=== PATIENT | female | born 1965 | race Caucasian/White ===

== ENCOUNTER 2017-06-20 12:41 | Inpatient (IN) ==
--- NOTE | 2017-06-19 22:08 | Discharge Summary ---
<JuanbyronSofie L - Last Filed: 06/20/17 11:45> Date of Encounter: 06/20/17 - Discharge Diagnosis (1) Arthritis of knee, left Priority: Primary Status: Acute (2) Status post total knee replacement, left Priority: Primary Status: Acute (3) Tobacco use Priority: Secondary Status: Chronic (4) DMII (diabetes mellitus, type 2) Priority: Secondary Status: Chronic Qualifiers: Diabetes mellitus complication status: without complication Diabetes mellitus senior care insulin use: unspecified senior care insulin use status Qualified Code(s): E11.9 - Type 2 diabetes mellitus without complications (5) HTN (hypertension) Priority: Secondary Status: Chronic Qualifiers: Hypertension type: essential hypertension Qualified Code(s): I10 - Essential (primary) hypertension (6) COPD (chronic obstructive pulmonary disease) Priority: Secondary Status: Chronic Qualifiers: COPD type: unspecified COPD Qualified Code(s): J44.9 - Chronic obstructive pulmonary disease, unspecified (7) Oxygen dependent Priority: Secondary Status: Chronic Comments: Patient on 2-3 Liters LPM/NC at night (8) CAD (coronary artery disease) Priority: Secondary Status: Chronic Qualifiers: Coronary Disease-Associated Artery/Lesion type: unspecified vessel or lesion type [place] vs. transplanted heart: [place] heart Associated angina: without angina Qualified Code(s): I25.10 - Atherosclerotic heart disease of [place] coronary artery without angina pectoris (9) Obesity Priority: Secondary Status: Chronic Qualifiers: Obesity type: due to excess calories Obesity classification: unspecified obesity classification Serious obesity comorbidity presence: with serious comorbidity Qualified Code(s): E66.09 - Other obesity due to excess calories; Z68.42 - Body mass index (BMI) 45.0-49.9, adult; Z68.42 - Body mass index (BMI) 45.0-49.9, adult; Z68.42 - Body mass index (BMI) 45.0-49.9, adult; Z68.42 - Body mass index (BMI) 45.0-49.9, adult (10) Decreased GFR Priority: Secondary Status: Chronic - Discharge Medications Home Medications: Bupropion HCl [Wellbutrin Xl] 300 mg PO DAILY 05/05/15 [History] Metoprolol [Lopressor] 25 mg PO BID 05/05/15 [History] Methocarbamol [Robaxin-750] 750 mg PO DAILY PRN 08/01/16 [History] Aspirin Enteric Coated [Aspirin EC] 325 mg PO DAILY #21 tablet. 06/19/17 [Rx] LORazepam 5 mg PO DAILY #5 06/19/17 [Rx] OxyCODONE Immed Rel [Roxicodone 5 MG] 5 mg PO Q6HR PRN #28 tablet 06/19/17 [Rx] Albuterol Sulfate [Ventolin Hfa] 2 puff IH Q4H PRN 06/20/17 [History] Aspirin Enteric Coated [Aspirin EC] 81 mg PO DAILY 06/20/17 [History] Atorvastatin Calcium [Lipitor] 20 mg PO DAILY 06/20/17 [History] Benztropine [Cogentin] 0.5 mg PO BID 06/20/17 [History] Celecoxib [Celebrex] 100 mg PO BID 06/20/17 [History] Ergocalciferol (VITAMIN D2) [Vitamin D2] 50,000 unit PO QWEEK 06/20/17 [History] Fluticasone/Vilanterol [Breo Ellipta 100-25 Mcg INH] 1 puff IH DAILY 06/20/17 [ History] Furosemide [Lasix] 40 mg PO DAILY 06/20/17 [History] Indomethacin 50 mg PO TID 06/20/17 [History] Ipratropium/Albuterol Neb [Duoneb] 3 ml IH Q6HR 06/20/17 [History] Mirtazapine [Remeron] 15 mg PO HS 06/20/17 [History] Montelukast [Singulair] 10 mg PO DAILY 06/20/17 [History] Nac 600 600 mg PO BID 06/20/17 [History] Omeprazole [PriLOSEC] 40 mg PO DAILY 06/20/17 [History] Ranitidine HCl [Zantac] 300 mg PO DAILY 06/20/17 [History] Umeclidinium [place] [Incruse Ellipta] 1 puff IH DAILY 06/20/17 [History] clonazePAM [Klonopin] 0.5 mg PO TID 06/20/17 [History] lamoTRIgine [Lamictal] 150 mg PO BID 06/20/17 [History] metFORMIN [Glucophage] 500 mg PO BIDWM 06/20/17 [History] risperiDONE [Risperdal] 2 mg PO BID 06/20/17 [History] Allergies/Adverse Reactions: 3 Allergy/AdvReac Type Severity Reaction Status Date / Time ciprofloxacin [From Cipro] Allergy Hives Verified 06/20/17 13:17 Cyclobenzaprine Allergy Agitated Verified 06/20/17 13:17 [From Flexeril] levofloxacin [From Levaquin] Allergy Hives Verified 06/20/17 13:17 moxifloxacin [From Avelox] Allergy Hives Verified 06/20/17 13:17 ziprasidone [From Geodon] Allergy Rash Verified 06/20/17 13:17 lurasidone [From Latuda] AdvReac mood Verified 06/20/17 13:17 changes Primary care physician: Shalini Echevarria - Patient Status Disposition: Home Health Service Condition: Good - Discharge Instructions Follow Up With: Shalini Echevarria MD [Primary Care Provider] - - Hospital Course Hospital course: Ms. Latham is a 51 year old female - Time Spent with Patient Total time spent providing and/or coordinating discharge services: <Geraldo Anton - Last Filed: 06/21/17 06:58> Date of Encounter: 06/21/17 Time of Encounter: 06:57 - Discharge Diagnosis (1) Arthritis of knee, left Priority: Primary Status: Chronic (2) Status post total knee replacement, left Priority: Primary Status: Chronic (3) Tobacco use Priority: Secondary Status: Chronic (4) DMII (diabetes mellitus, type 2) Priority: Secondary Status: Chronic Qualifiers: Diabetes mellitus complication status: without complication Diabetes mellitus intermodal dispatcher insulin use: unspecified senior care insulin use status Qualified Code(s): E11.9 - Type 2 diabetes mellitus without complications (5) HTN (hypertension) Priority: Secondary Status: Chronic Qualifiers: Hypertension type: essential hypertension Qualified Code(s): I10 - Essential (primary) hypertension (6) COPD (chronic obstructive pulmonary disease) Priority: Secondary Status: Chronic Qualifiers: COPD type: unspecified COPD Qualified Code(s): J44.9 - Chronic obstructive pulmonary disease, unspecified (7) Oxygen dependent Priority: Secondary Status: Chronic (8) CAD (coronary artery disease) Priority: Secondary Status: Chronic Qualifiers: Coronary Disease-Associated Artery/Lesion type: unspecified vessel or lesion type [place] vs. transplanted heart: [place] heart Associated angina: without angina Qualified Code(s): I25.10 - Atherosclerotic heart disease of [place] coronary artery without angina pectoris (9) Obesity Priority: Secondary Status: Chronic Qualifiers: Obesity type: due to excess calories Obesity classification: adult class 3 (BMI >= 40) Serious obesity comorbidity presence: with serious comorbidity Body mass index: BMI 45.0-49.9 Qualified Code(s): E66.01 - Morbid (severe) obesity due to excess calories; Z68.42 - Body mass index (BMI) 45.0-49.9, adult ; Z68.42 - Body mass index (BMI) 45.0-49.9, adult; Z68.42 - Body mass index (BMI ) 45.0-49.9, adult; Z68.42 - Body mass index (BMI) 45.0-49.9, adult (10) Decreased GFR Priority: Secondary Status: Chronic Labs on day of discharge: Labs from last 24 hours 06/20/17 13:03 POC Glucose 106 H Primary care physician: Shalini Echevarria - Patient Status Functional capacity at discharge: uses cane/walker Overall status at discharge: patient is progressing back to baseline - Hospital Course Hospital course: Ms. Latham is a 51 year old female Status post left total knee replacement The patient had an uneventful postoperative course. They received antibiotics and physical therapy and were discharged in stable condition. There will follow -up in the office in 2 weeks. - Time Spent with Patient Total time spent providing and/or coordinating discharge services:
[2017-06-20] MEDS ORDERED: CeFAZolin Syr 3,000MG/30 ML 3,000 MG/30 ML SYRINGE IVPB ONE (13:01)
[2017-06-20] MEDS ORDERED: Albuterol 2.5 MG/3 ML NEBULIZER IH ONE (13:03)
--- NOTE | 2017-06-20 13:12 | History & Physical Report ---
Date of Encounter: 06/20/17 Time of Encounter: 13:12 24 Hour HP Update - Instructions Instructions: If the History and Physical is less than 30 days old and was completed prior to A.M. admission and or procedure and has NOT been updated on calendar day of procedure please complete this update prior to performing procedure. - Update Patient reports changes in Medical Condition: No Changes in examination, assessment, or condition: No Changes in Medication: No Preop tests/diagnostics Reviewed: Yes Surgery Remains Indicated: Yes Consent for Planned Operative Procedure(s) Verified: Yes - Pre-Operative Checklist Preoperative Checklist Indicated: No Prophylactic Antibiotic Ordered: Yes Is VTE Prophylaxis Indicated?: Yes
[2017-06-20] MEDS: Ringers Solution, Lactated 1,000 ML IVC SCH ×2 (13:22→18:15)
--- NOTE | 2017-06-20 13:51 | Anesthesia Evaluation PreOp ---
Date of Encounter: 06/20/17 Time of Encounter: 13:50 - Past History Planned Operation: Left TKA Cardiac History: HTN Pulmonary History: Smoker, COPD Other Medical History: Diabetes Type II, GERD Anesthesia History: Past Anesthesia ([facility]) : No Alcohol Use: none Drug use: none Medications and Allergies Bupropion HCl [Wellbutrin Xl] 300 mg PO DAILY 05/05/15 [History] Metoprolol [Lopressor] 25 mg PO BID 05/05/15 [History] Methocarbamol [Robaxin-750] 750 mg PO DAILY PRN 08/01/16 [History] Aspirin Enteric Coated [Aspirin EC] 325 mg PO DAILY #21 tablet.dr 06/19/17 [Rx] LORazepam 5 mg PO DAILY #5 06/19/17 [Rx] OxyCODONE Immed Rel [Roxicodone 5 MG] 5 mg PO Q6HR PRN #28 tablet 06/19/17 [Rx] Albuterol Sulfate [Ventolin Hfa] 2 puff IH Q4H PRN 06/20/17 [History] Aspirin Enteric Coated [Aspirin EC] 81 mg PO DAILY 06/20/17 [History] Atorvastatin Calcium [Lipitor] 20 mg PO DAILY 06/20/17 [History] Benztropine [Cogentin] 0.5 mg PO BID 06/20/17 [History] Celecoxib [Celebrex] 100 mg PO BID 06/20/17 [History] Ergocalciferol (VITAMIN D2) [Vitamin D2] 50,000 unit PO QWEEK 06/20/17 [History] Fluticasone/Vilanterol [Breo Ellipta 100-25 Mcg INH] 1 puff IH DAILY 06/20/17 [ History] Furosemide [Lasix] 40 mg PO DAILY 06/20/17 [History] Indomethacin 50 mg PO TID 06/20/17 [History] Ipratropium/Albuterol Neb [Duoneb] 3 ml IH Q6HR 06/20/17 [History] Mirtazapine [Remeron] 15 mg PO HS 06/20/17 [History] Montelukast [Singulair] 10 mg PO DAILY 06/20/17 [History] Nac 600 600 mg PO BID 06/20/17 [History] Omeprazole [PriLOSEC] 40 mg PO DAILY 06/20/17 [History] Ranitidine HCl [Zantac] 300 mg PO DAILY 06/20/17 [History] Umeclidinium [place] [Incruse Ellipta] 1 puff IH DAILY 06/20/17 [History] clonazePAM [Klonopin] 0.5 mg PO TID 06/20/17 [History] lamoTRIgine [Lamictal] 150 mg PO BID 06/20/17 [History] metFORMIN [Glucophage] 500 mg PO BIDWM 06/20/17 [History] risperiDONE [Risperdal] 2 mg PO BID 06/20/17 [History] 3 Allergy/AdvReac Type Severity Reaction Status Date / Time ciprofloxacin [From Cipro] Allergy Hives Verified 06/20/17 13:17 Cyclobenzaprine Allergy Agitated Verified 06/20/17 13:17 [From Flexeril] levofloxacin [From Levaquin] Allergy Hives Verified 06/20/17 13:17 moxifloxacin [From Avelox] Allergy Hives Verified 06/20/17 13:17 ziprasidone [From Geodon] Allergy Rash Verified 06/20/17 13:17 lurasidone [From Latuda] AdvReac mood Verified 06/20/17 13:17 changes - Meds/Allergy Pre-op Review Medications Reviewed: Yes Allergies Reviewed: Yes Beta Blockers on Current Med List: Yes If Beta Blockers taken, Date/Time (Last Dose taken): 06/20/2017 @05:45 Anesthesia Results - Labs Laboratory Tests 05/13/17 06/16/17 06/16/17 12:45 15:45 15:45 WBC 8.2 Hgb 12.7 Hct 39.5 Plt Count 262 INR 1.0 Sodium Potassium Chloride Carbon Dioxide BUN Creatinine Hemoglobin A1c 5.5 06/16/17 15:45 WBC Hgb Hct Plt Count INR Sodium 139 Potassium 4.5 Chloride 108 Carbon Dioxide 23 BUN 13 Creatinine 1.10 Hemoglobin A1c Echocardiogram Name: Soraya Latham Date of Study: 05/31/2016 Impressions: LVEF 60%. Normal left ventricular size and systolic function. There is evidence of mild diastolic dysfunction of the left ventricle. Normal RV function. No significant valvular dysfunction. Estimated RVSP was 19 mmHg. No pulmonary hypertension. Stress 01/18/17 Stress: EF-71% No Ischemia 12/02/16 PROCEDURES PERFORMED: SP.PFT before and after bronchodilator SP.PFT body box lung volume SP.PFT DLCO INTERPRETATION: Spirometry shows moderate airway restrictive disease. Following Bronchodilator, there is 36 % increase in small airways/mid-flows. Increased Lung Volumes reveal hyperinflation and air trapping. Diffusion Capacity is moderate to severely reduced. Flow Volume Loop: Obstructive - Imaging EKG: image reviewed (SR) Anesthesia Exam O2 Sat Height 1.66 m Height 1.66 m Weight 124.738 kg Weight 124.738 kg O2 Sat by Pulse Oximetry 96 Vital Signs Temp Pulse Resp BP Pulse Ox 98.1 F 75 18 145/88 96 06/20/17 13:05 06/20/17 13:05 06/20/17 13:05 06/20/17 13:05 06/20/17 13:05
[2017-06-20] MEDS ORDERED: *HR* Succinylcholine 200 MG/10 ML VIAL IVP ONE (14:38)
[2017-06-20] MEDS ORDERED: Lidocaine -MPF 2% 2 ML VIAL ONE (14:38)
[2017-06-20] MEDS ORDERED: *HR* Propofol 200 MG/20 ML VIAL IVP ONE (14:38)
[2017-06-20] MEDS ORDERED: *HR* FentaNYL (PF) 100 MCG/2 ML VIAL ONE (14:38)
[2017-06-20] MEDS ORDERED: *HR* Midazolam HCl 2 MG/2 ML VIAL ONE (14:38)
[2017-06-20] MEDS ORDERED: Ondansetron 4 MG/2 ML VIAL ONE (14:38)
[2017-06-20] MEDS ORDERED: *HR* Promethazine 25 MG/ML VIAL IVP PRN (14:57)
[2017-06-20] MEDS ORDERED: *HR* Meperidine 25 MG/ML SYRINGE IVP PRN (14:57)
[2017-06-20] MEDS ORDERED: *HR* HYDROmorphone (PF) 1 MG/ML SYRINGE IVP PRN ×2 (14:57→20:07)
[2017-06-20] MEDS ORDERED: *HR* Labetalol 20 MG/4 ML SYRINGE IVP PRN (14:57)
[2017-06-20] MEDS ORDERED: Ethanol\\Acetic Acid\\Na Ace\\Ben 1,000 ML IRRIG.SOLN IR ONE (15:13)
[2017-06-20] MEDS ORDERED: Acetaminophen IV 1,000 MG/100 ML INFUS..BTL ONE (15:13)
[2017-06-20] MEDS ORDERED: Bupivacaine/Clonidine Syringe 1 EACH SYRINGE ONE (15:38)
[2017-06-20] MEDS ORDERED: ROPIVACAINE HCL/PF 0.5% 30 ML VIAL ONE (15:43)
--- NOTE | 2017-06-20 15:57 | Physician Discharge Referral ---
<Sofie Bach Rebeca - Last Filed: 06/20/17 15:56> Home Health/Hosp Referral Info Transfer to: Home Health Attending Provider: Provider in Charge Post Discharge: PCP - Diagnosis (1) Arthritis of knee, left Priority: Primary Status: Chronic (2) Status post total knee replacement, left Priority: Primary Status: Chronic (3) Tobacco use Priority: Secondary Status: Chronic (4) DMII (diabetes mellitus, type 2) Priority: Secondary Status: Chronic (5) HTN (hypertension) Priority: Secondary Status: Chronic (6) COPD (chronic obstructive pulmonary disease) Priority: Secondary Status: Chronic (7) Oxygen dependent Priority: Secondary Status: Chronic (8) CAD (coronary artery disease) Priority: Secondary Status: Chronic (9) Obesity Priority: Secondary Status: Chronic (10) Decreased GFR Priority: Secondary Status: Chronic - Respiratory Orders None Smoking Cessation: Smoking cessation has been advised. For more information, call the [employer] Tobacco Quit Line at 0-054-FSUQ-NOW. - Diet/Nutrition Diet/Nutrition Orders: Regular - Activity Activity Orders: Up ad samantha, Ambulate, Chair - Services Needed Following services are medically necessary services: Nursing, Home Health Aide, Physical Therapy, Occupational Therapy Home Care Orders: Opsite dressing, leave intact until first post-operative visit. If dressing becomes >50% saturated, contact office, remove dressing and place appropriate dressing in its place. Do not allow for dressing to get wet. /Zipline dressing in place, plan to remove at POD#14-16. PT: Total Joint Precautions x 6 weeks Apply ICE/cold therapy wrap 3-6x/day for 20 minutes at a time. Encourage ambulation throughout the day and incentive spirometer 10x/hour. Elevate affected extremity above heart as tolerated. Brace: Knee immobilizer at night until first post-operative appointment. - Transfer Medications Home Medications: Bupropion HCl [Wellbutrin Xl] 300 mg PO DAILY 05/05/15 [History] Metoprolol [Lopressor] 25 mg PO BID 05/05/15 [History] Methocarbamol [Robaxin-750] 750 mg PO DAILY PRN 08/01/16 [History] Aspirin Enteric Coated [Aspirin EC] 325 mg PO DAILY #21 tablet. 06/19/17 [Rx] LORazepam 5 mg PO DAILY #5 06/19/17 [Rx] OxyCODONE Immed Rel [Roxicodone 5 MG] 5 mg PO Q6HR PRN #28 tablet 06/19/17 [Rx] Albuterol Sulfate [Ventolin Hfa] 2 puff IH Q4H PRN 06/20/17 [History] Aspirin Enteric Coated [Aspirin EC] 81 mg PO DAILY 06/20/17 [History] Atorvastatin Calcium [Lipitor] 20 mg PO DAILY 06/20/17 [History] Benztropine [Cogentin] 0.5 mg PO BID 06/20/17 [History] Celecoxib [Celebrex] 100 mg PO BID 06/20/17 [History] Ergocalciferol (VITAMIN D2) [Vitamin D2] 50,000 unit PO QWEEK 06/20/17 [History] Fluticasone/Vilanterol [Breo Ellipta 100-25 Mcg INH] 1 puff IH DAILY 06/20/17 [ History] Furosemide [Lasix] 40 mg PO DAILY 06/20/17 [History] Indomethacin 50 mg PO TID 06/20/17 [History] Ipratropium/Albuterol Neb [Duoneb] 3 ml IH Q6HR 06/20/17 [History] Mirtazapine [Remeron] 15 mg PO HS 06/20/17 [History] Montelukast [Singulair] 10 mg PO DAILY 06/20/17 [History] Nac 600 600 mg PO BID 06/20/17 [History] Omeprazole [PriLOSEC] 40 mg PO DAILY 06/20/17 [History] Ranitidine HCl [Zantac] 300 mg PO DAILY 06/20/17 [History] Umeclidinium [place] [Incruse Ellipta] 1 puff IH DAILY 06/20/17 [History] clonazePAM [Klonopin] 0.5 mg PO TID 06/20/17 [History] lamoTRIgine [Lamictal] 150 mg PO BID 06/20/17 [History] metFORMIN [Glucophage] 500 mg PO BIDWM 06/20/17 [History] risperiDONE [Risperdal] 2 mg PO BID 06/20/17 [History] Allergies/Adverse Reactions: 3 Allergy/AdvReac Type Severity Reaction Status Date / Time ciprofloxacin [From Cipro] Allergy Hives Verified 06/20/17 13:17 Cyclobenzaprine Allergy Agitated Verified 06/20/17 13:17 [From Flexeril] levofloxacin [From Levaquin] Allergy Hives Verified 06/20/17 13:17 moxifloxacin [From Avelox] Allergy Hives Verified 06/20/17 13:17 ziprasidone [From Geodon] Allergy Rash Verified 06/20/17 13:17 lurasidone [From Latuda] AdvReac mood Verified 06/20/17 13:17 changes Certification: Further, I certify that my clinical findings support that this patient is homebound (i.e. absences from home require considerable and taxing effort and are for medical reasons or cheondoism services or infrequently or short duration when for other reasons) because: Attestation: My signature below is to certify that this patient is under my care and that I, or nurse practitioner, or a physician's assistant professor of business working with me, has a face-to -face encounter with this patient. <Geraldo Anton - Last Filed: 06/21/17 06:41> - Diagnosis (1) Arthritis of knee, left Status: Chronic (2) Status post total knee replacement, left Status: Chronic (3) Tobacco use Status: Chronic (4) DMII (diabetes mellitus, type 2) Status: Chronic (5) HTN (hypertension) Status: Chronic (6) COPD (chronic obstructive pulmonary disease) Status: Chronic (7) Oxygen dependent Status: Chronic (8) CAD (coronary artery disease) Status: Chronic (9) Obesity Status: Chronic (10) Decreased GFR Status: Chronic - Respiratory Orders Smoking Cessation: Smoking cessation has been advised. For more information, call the [place] Tobacco Quit Line at 8-661-NTJI-NOW. Certification: Further, I certify that my clinical findings support that this patient is homebound (i.e. absences from home require considerable and taxing effort and are for medical reasons or cheondoism services or infrequently or short duration when for other reasons) because: Homebound Reason: Patient requires assistance of a person or device to safely leave home Attestation: My signature below is to certify that this patient is under my care and that I, or nurse practitioner, or a physician's assistant professor of business working with me, has a face-to -face encounter with this patient.
--- NOTE | 2017-06-20 16:16 | Anesthesia Procedures ---
Date of Encounter: 06/20/17 Time of Encounter: 15:57 Procedures: Anesthesia - Nerve Block Procedure Date: 06/20/17 Time: 15:57 Allergies/Adv Reactions: cipro, cyclobenzaprine, leovfloxacin, moxifloxacin, geodon, latuda Pre-op Diagnosis: Left knee arthritis Surgical Procedure: Left total knee arthroplasty Checklist: Correct Patient Identifier, Correct procedure, History checked Correct side: Left Blood Thinner: No Monitor Applied: EKG, BP, Pulse Oximetry Supplemental Oxygen via Nasal Cannula (L/min): 2 Sedation: Versed (mg): 2 Sedation: Fentanyl (mcg): 100 Indication: Post Op Analgesia Pre-op Neuro Deficits: No Block Type: Femoral, Other (IPAC) Catheter placed: No Sterile Technique: Yes Ultrasound used: Yes Anatomy identified: Yes Visual spread of Local: Yes Neuro Stimulation: Yes Nerve Stimulator Range: 0.2 - 0.4 mA Blood on Needle Aspiration: No Smooth Injection of Local: Yes Pain with Injection of Local: No Prep: Chlorhexadine Needle: 22 x 50 mm Stimuplex, 21 x 100 mm Stimuplex Local: 0.25% Bupivicaine w/Clonidine 20 mcg/cc (20ml), Ropivacaine (0.5% 30ml) Volume (cc): 50 Number of Attempts: 1 Complications: None/effective block Vitals: Vital Signs Temperature 98.1 F 06/20/17 13:05 Pulse Rate 75 06/20/17 13:05 Respiratory Rate 18 06/20/17 13:05 Blood Pressure 145/88 06/20/17 13:05 O2 Sat by Pulse Oximetry 96 06/20/17 13:05 Temperature 98.1 F 06/20/17 13:05 Pulse Rate 74 06/20/17 15:46 Respiratory Rate 18 06/20/17 15:46 Blood Pressure 139/92 06/20/17 15:46 O2 Sat by Pulse Oximetry 95 06/20/17 15:46
[2017-06-20] MEDS ORDERED: *HR* HYDROmorphone 2 MG/ML SYRINGE ONE (16:38)
[2017-06-20] MEDS ORDERED: Lidocaine -MPF 4% 5 ML AMPUL ONE (16:53)
[2017-06-20] MEDS ORDERED: Ketorolac 30 MG/ML VIAL ONE (17:26)
--- NOTE | 2017-06-20 17:29 | Orthopedic Operative Note ---
Date of procedure: 06/20/17 Pre-op diagnosis: Left knee arthritis Post-op diagnosis: same Procedure: Procedure: Left robotic-assisted Total knee replacement Estimated blood loss: 300 cc Hardware: Metal and polyethylene replacement. Yony Femur: 3 Tibia:4 PS insert: 11TS Patella: 33 Exam Under anesthesia: Loss of full extension 4 degrees as calculated by the robot full flexion and no instability Procedural Notes: Grade 4 arthritic changes in all 3 compartments Operative procedure: The patient was brought to the operating room and placed on the operating room table. After general anesthesia was administered the operative knee was examined. Findings were noted in the exam under anesthesia. The operative extremity was prepped and draped in sterile surgical fashion. The patient received IV antibiotics prior to skin incision. A standard midline incision was made centered over the patella. The incision was made through the skin and subcutaneous tissue. A medial parapatellar tendon approach was performed. Care was taken to preserve tissue along the medial aspect of the patella. And to protect the patella tendon. The deep MCL was released off the medial tibia. The infra patella fat pad was excised. The patella was everted and cut was made at the level of the insertion of the quadriceps and patella tendon. The patella was sized 33 the guide was seated and the lug holes are drilled. Knee was brought into flexion. Patient noted to have grade 4 arthritic changes all 3 compartments. Steinmann pins were placed in the tibia and the femur for the tibial and femoral arrays respectively. Checkpoints were also placed in the tibia and the femur for calculation purposes. The knee including the femur and the tibial registered. Osteophytes, ACL and PCL were excised at this point. Extension was to loss of full extension 4 degrees and varus and valgus stresses were assessed, 90 degrees of flexion varus and valgus stresses were assessed and components were adjusted on the computer for the robotic cut positions. Femoral cuts were made first with robotic assistance, these included the anterior cut posterior cuts chamfer cuts. Tibial cut was then performed with robotic assistance as well. Bone fragments were removed, as well as the medial and lateral meniscus. The size 3 femoral guide was seated box cut was made lug holes are drilled. The size 4 tibial tray was seated and prepared with the fin cutter. Trial reduction with the 11 PS Laura revealed extension of 0 degree and full flexion. No varus valgus instability. Trial reduction revealed excellent patella tracking. All trial components were removed all bony surfaces were irrigated. Tibia was cemented followed by the femur the TS Laura size 11 was seated , the patella was cemented and held in place with a patella clamp. Patient had similar findings for motion and stability. The knee was closed by the PA. The knee was then irrigated out with 2 L of pulse irrigation. The extensor mechanism was closed with #2 FiberWire suture and #2 PDS suture. The subcutaneous tissue was then irrigated and closed deep with #1 PDS suture superficially with 0 PDS suture and skin was closed with zip tie The patient was then placed in a sterile dressing and a postoperative brace extubated and transferred to recovery room in stable condition. Anesthesia: GETA Surgeon: Geraldo Anton Condition: stable Disposition: PACU
[2017-06-20] MEDS ORDERED: *HR* Enoxaparin 30 MG/0.3 ML SYRINGE SQ SCH (18:00)
[2017-06-20] MEDS ORDERED: Albuterol 2.5 MG/3 ML NEBULIZER ONE (18:23)
[2017-06-20 18:51] LABS: Hematocrit 35.4 % (35.3-44.9); Hemoglobin 11.3 g/dL (11.5-15.4)
--- NOTE | 2017-06-20 19:18 | Anesthesia Evaluation Post Op ---
Date of Encounter: 06/20/17 Time of Encounter: 19:15 - Vital Signs Vital Signs: Last Vital Signs Temp 97.2 F L 06/20/17 19:12 Pulse 68 06/20/17 19:12 Resp 16 06/20/17 19:12 BP 132/88 06/20/17 19:12 Pulse Ox 96 06/20/17 19:12 - Lungs Lungs: Clear Ascult./Percussion - Airway Airway: Non-obstructed - Cardiovascular Regular Rate - Mental Status Mental Status: Alert & Oriented, Answers Appropriately - Pain Pain Scale: 2 - Nausea Vomiting Nausea Vomiting: Not Present - Hydration Hydration: NPO - Discharge PostOp Status: Transfer Patient to floor
[2017-06-20] MEDS ORDERED: Ringers Solution, Lactated 1,000 ML IVC SCH (20:07)
[2017-06-20] MEDS ORDERED: CeFAZolin Syr 3,000MG/30 ML 3,000 MG/30 ML SYRINGE IVPB SCH (20:07)
[2017-06-20] MEDS ORDERED: Naloxone 0.4 MG/ML INJ IVP PRN (20:07)
[2017-06-20] MEDS ORDERED: Sennosides 8.6 MG TABLET PO PRN (20:07)
[2017-06-20] MEDS ORDERED: Ondansetron 4 MG/2 ML VIAL IVP PRN (20:07)
[2017-06-20] MEDS ORDERED: Dextrose Gel 15 GM PO PRN ×2 (20:07)
[2017-06-20] MEDS ORDERED: *HR* OxyCODONE Immed Rel 5 MG TABLET PO PRN (20:07)
[2017-06-20] MEDS ORDERED: MOM Conc 10 ML UD.LIQ PO PRN (20:07)
[2017-06-20] MEDS ORDERED: Methocarbamol 750 MG TABLET PO PRN (20:07)
[2017-06-20] MEDS ORDERED: *HR* Dextrose 50 % in Water (Syg) 50 ML SYRINGE IVP PRN (20:07)
[2017-06-20] MEDS ORDERED: D5% in Water 1,000 ML IVC PRN (20:07)
[2017-06-20] MEDS ORDERED: Temazepam 15 MG CAPSULE PO PRN (20:07)
[2017-06-20] MEDS ORDERED: Mirtazapine 15 MG TABLET PO SCH (21:00)
[2017-06-20] MEDS ORDERED: Insulin LISPRO 300 UNITS/3 ML VIAL SQ SCH (21:00)
[2017-06-20] MEDS: clonazePAM 0.5 MG TABLET PO SCH ×2 (21:58→22:01)
[2017-06-20] MEDS: risperiDONE 1 MG TABLET PO SCH (21:59)
[2017-06-20] MEDS: *HR* Acetylcysteine 20% 600 MG/3 ML ORAL SYRINGE PO SCH (21:59)
[2017-06-20] MEDS: *HR* OxyCODONE Immed Rel 5 MG TABLET PO PRN (21:59)
[2017-06-20] MEDS: lamoTRIgine 100 MG TABLET PO SCH (22:00)
[2017-06-20] MEDS: *HR* Metformin 500 MG TABLET PO SCH (22:05)
[2017-06-20] MEDS: Insulin LISPRO 300 UNITS/3 ML VIAL SQ SCH (22:08)
[2017-06-20] MEDS: Indomethacin 25 MG CAPSULE PO SCH (22:12)
[2017-06-20] MEDS: CeFAZolin Syr 3,000MG/30 ML 3,000 MG/30 ML SYRINGE IVPB SCH (23:26)
[2017-06-21] MEDS: Ipratropium/Albuterol Neb 3 ML IH SCH ×3 (03:32→10:37)
[2017-06-21] MEDS: *HR* OxyCODONE Immed Rel 5 MG TABLET PO PRN (04:47)
[2017-06-21] MEDS ORDERED: *HR* Enoxaparin 30 MG/0.3 ML SYRINGE SQ SCH (06:00)
--- NOTE | 2017-06-21 06:42 | Orthopedics Progress Note ---
Date of Encounter: 06/21/17 Time of Encounter: 06:41 - Assessment and Plan (1) Arthritis of knee, left Current Visit: No Status: Chronic (2) Status post total knee replacement, left Current Visit: No Status: Chronic (3) Tobacco use Current Visit: No Status: Chronic (4) DMII (diabetes mellitus, type 2) Current Visit: No Status: Chronic Qualifiers: Diabetes mellitus complication status: without complication Diabetes mellitus senior living insulin use: unspecified long distance operator insulin use status Qualified Code(s): E11.9 - Type 2 diabetes mellitus without complications (5) HTN (hypertension) Current Visit: No Status: Chronic Qualifiers: Hypertension type: essential hypertension Qualified Code(s): I10 - Essential (primary) hypertension (6) COPD (chronic obstructive pulmonary disease) Current Visit: No Status: Chronic Qualifiers: COPD type: unspecified COPD Qualified Code(s): J44.9 - Chronic obstructive pulmonary disease, unspecified (7) Oxygen dependent Current Visit: No Status: Chronic (8) CAD (coronary artery disease) Current Visit: No Status: Chronic Qualifiers: Coronary Disease-Associated Artery/Lesion type: unspecified vessel or lesion type [place] vs. transplanted heart: [place] heart Associated angina: without angina Qualified Code(s): I25.10 - Atherosclerotic heart disease of [place] coronary artery without angina pectoris (9) Obesity Current Visit: No Status: Chronic Qualifiers: Obesity type: due to excess calories Obesity classification: adult class 3 (BMI >= 40) Serious obesity comorbidity presence: with serious comorbidity Body mass index: BMI 45.0-49.9 Qualified Code(s): E66.01 - Morbid (severe) obesity due to excess calories; Z68.42 - Body mass index (BMI) 45.0-49.9, adult ; Z68.42 - Body mass index (BMI) 45.0-49.9, adult; Z68.42 - Body mass index (BMI ) 45.0-49.9, adult; Z68.42 - Body mass index (BMI) 45.0-49.9, adult (10) Decreased GFR Current Visit: No Status: Chronic Subjective Interval history: Patient was seen this morning doing well without complaints. Afebrile vital signs stable. Operative extremity: Neurovascularly intact Dressing clean dry and intact Calves nontender Assessment and plan: Continue with postoperative care Hematocrit 35 Objective Vital signs: Vital Signs Temp Pulse Resp BP Pulse Ox 06/21/17 06:07 98.4 F 60 16 113/72 97 06/21/17 04:22 16 107/71 98 06/21/17 03:25 97.9 F 73 18 107/71 96 06/20/17 23:28 97.7 F 78 18 111/71 95 06/20/17 22:03 97.9 F 71 18 111/76 97 06/20/17 21:28 97 06/20/17 20:48 98.6 F 66 14 109/75 96 06/20/17 20:17 98.1 F 68 18 115/81 98 06/20/17 19:45 97.7 F 67 20 116/75 98 06/20/17 19:12 97.2 F L 68 16 132/88 96 06/20/17 19:02 70 16 126/94 98 06/20/17 18:52 97.1 F L 72 18 138/88 97 06/20/17 18:42 77 18 133/87 97 06/20/17 18:32 77 18 119/78 96 06/20/17 18:22 97.3 F L 77 14 127/90 98 06/20/17 16:00 74 16 121/72 98 06/20/17 15:46 74 18 139/92 95 06/20/17 13:05 98.1 F 75 18 145/88 96 Intake and Output 06/20/17 06/20/17 06/21/17 15:59 23:59 07:59 Intake Total 1030 / 1030 300 / 300 Output Total 300 / 300 300 / 300 Balance 730 / 730 0 / 0 Intake: IV Fluids 1030 / 1030 Lactated Ringers 1,000 ML @ 25 1000 / 1000 mls/hr IVC .Q24H WILLIE Rx#: [id number] Ancef Syringe 3,000 MG/30 ML 3, 30 / 30 000 mg In 30 ml @ 200 mls/hr IVPB Q8HR WILLIE Rx#:[id number] Oral 300 / 300 Output: Urine 300 / 300 Estimated Blood Loss 300 / 300 Other: # Urine Diapers 1 Weight 124.738 kg Blood Glucose* 106 169 - Labs CBC & BMP: 06/20/17 18:32 Labs: Abnormal lab results Hgb 11.3 g/dL (11.5-15.4) L 06/20/17 18:32 POC Glucose 169 (58-89) H 06/20/17 22:08 - VTE Documentation of Mechanical Device: Venous foot pump, device Consult Discharge Plan - Plan Referrals: Shalini Echevarria MD [Primary Care Provider] -
[2017-06-21 06:48] LABS: Hematocrit 32.3 % (35.3-44.9); Hemoglobin 10.5 g/dL (11.5-15.4)
[2017-06-21 06:59] LABS: Chloride 107 mEq/L (98-109); Potassium 4.7 mEq/L (3.5-4.5); Sodium 138 mEq/L (136-145)
[2017-06-21 07:00] LABS: BUN/Creatinine Ratio 11 (6-26); Blood Urea Nitrogen 10 mg/dL (7-20); Calcium 8.4 mg/dL (8.6-10.8); Carbon Dioxide 22 mEq/L (19-29); Glucose 146 mg/dL (70-99); Osmolality,Calculated 288 (280-300); eGFR For African Americans > 60 (> 60); eGFR For Non-African Americans > 60 (> 60)
[2017-06-21] MEDS: Insulin LISPRO 300 UNITS/3 ML VIAL SQ SCH ×2 (08:34→12:23)
[2017-06-21] MEDS: CeFAZolin Syr 3,000MG/30 ML 3,000 MG/30 ML SYRINGE IVPB SCH (08:48)
[2017-06-21] MEDS: clonazePAM 0.5 MG TABLET PO SCH (08:49)
[2017-06-21] MEDS: *HR* Metformin 500 MG TABLET PO SCH (08:49)
[2017-06-21] MEDS: risperiDONE 1 MG TABLET PO SCH (08:49)
[2017-06-21] MEDS: lamoTRIgine 100 MG TABLET PO SCH (08:50)
[2017-06-21] MEDS: Indomethacin 25 MG CAPSULE PO SCH (08:50)
[2017-06-21] MEDS ORDERED: (Umeclidinium Bromide [Incruse Ellipta] 1 PUFF) IH SCH (09:00)
[2017-06-21] MEDS ORDERED: Famotidine 20 MG TABLET PO SCH (09:00)
[2017-06-21] MEDS ORDERED: Furosemide 40 MG TABLET PO SCH (09:00)
[2017-06-21] MEDS ORDERED: (Fluticasone/Vilanterol [Breo Ellipta 100-25 Mcg Inh] IH SCH (09:00)
[2017-06-21] MEDS ORDERED: BuPROPion XL (24 HR) 150 MG TABLET PO SCH (09:00)
[2017-06-21] MEDS ORDERED: Aspirin Enteric Coated 81 MG Tablet PO SCH (09:00)
[2017-06-21] MEDS: *HR* Acetylcysteine 20% 600 MG/3 ML ORAL SYRINGE PO SCH (12:24)
[2017-06-21 13:09] VITALS: BP 100/64
== END 2017-06-21 15:30 | disposition home health service (06) | DRG 302 ==
LOC: SAMDAY 12:41 → 3NENU 19:55
PROVIDERS: ADMIT Orthopaedic Surgery; ATTEND Orthopaedic Surgery